=== PATIENT | female | born 1970 | race Caucasian/White ===

== ENCOUNTER 2018-03-08 05:15 | Day surgery (SDC) | payer MEDICARE, OTHER ==
[~2018-03-08] VITALS: Ht 175.3 cm; Wt 64.9 kg
[2018-03-08] VITALS (10 sets, daily range): BP systolic 105–120; BP diastolic 40–79
[~2018-03-08 05:15] MED LIST: FOLIC ACID1 MG ORAL; KEPPRA1000 MG ORAL; KLONOPIN0.5 MG ORAL; LEVOTHYROXINE75 MCG ORAL; LEXAPRO10 MG ORAL; TESTOSTERO100 MG/1 M SUBQ; VISTARIL50 MG ORAL; iron PO
[2018-03-08] MEDS ORDERED: Muri-Lube ONE (06:45)
[2018-03-08] MEDS ORDERED: Bupivacaine 0.25% Inj 30ml INJ ONE (06:46)
[2018-03-08] MEDS ORDERED: Lidocaine 1% 10mg/ml/Epi 0.005mg/ml 30ml vial INJ ONE (06:46)
[2018-03-08] MEDS ORDERED: Dyna-Hex 2% Top Sol 2oz TOPIC ONE (06:46)
[2018-03-08] MEDS ORDERED: ceFAZolin sod 2 GM in NS 55 ML IVPB ONE (07:00)
--- NOTE | 2018-03-08 07:03 | Anethesia Preoperative Eval ---
Anesthesia Pre-op PMH/ROS General Date of Evaluation: Mar 08, 2018 Anesthesiologist: Enrike ASA Score: ASA 2 Mallampati Score Class I : Soft palate, uvula, fauces, pillars visible Class II: Soft palate, uvula, fauces visible Class III: Soft palate, base of uvula visible Class IV: Only hard plate visible Mallampati Classification: Class II Surgeon: Arlet Diagnosis: Gender dysphoria Surgical Procedure: Bilateral mastectomy with free nipple graft Anesthesia History: none Family History: no anesthesia problems Allergies: Coded Allergies: PHENYTOIN (Verified Allergy, Unknown, 03/07/18) SUMATRIPTAN (Verified Allergy, Unknown, "symptoms like having heart attack ", 03/07/18) OXCARBAZEPINE (Verified Adverse Reaction, Unknown, decreased in WBC, ) Medications: see eMAR Patient NPO?: Yes NPO Date: Mar 08, 2018 NPO Time: 22:00 Past Medical History Cardiovascular: Denies: HTN, CAD, VT, valve dz, arrhythmia, other Pulmonary: Denies: asthma, COPD, GARY, other Gastrointestinal/Genitourinary: Denies: GERD, CRI, ESRD, other Neurologic/Psychiatric: Reports: depression/anxiety, other - seizure d/o; Denies: dementia, CVA, TIA Endocrine: Denies: DM, hypothyroidism, steroids, other HEENT: Denies: cataract (L), cataract (R), glaucoma, [place] (L), [place] (R), other Hematology/Immune: Denies: anemia, DVT, bleeding disorder, other Musculoskeletal/Integumentary: Denies: OA, RA, DJD, DDD, edema, other Other: other - Autistic-mild PSxH Narrative: Denies Anesthesia Pre-op Phys. Exam Physician Exam Last Vital Signs Date Time Temp Pulse Resp B/P (MAP) Pulse Ox O2 Delivery O2 Flow Rate FiO2 03/08/18 06:05 Room Air 03/08/18 06:01 98.6 59 18 116/76 99 Constitutional: NAD, other - AAOX4, +stutter/slur, Left temporal abrasion Cardiovascular: RRR Respiratory: CTA Airway Exam Mallampati Score: Class II MO: full ROM: full Teeth: intact Anesthesia Pre-op A/P Labs see chart Urine Test Test 03/08/18 05:30 Urine HCG, Qualitative Negative (NEGATIVE) Risk Assessment & Plan Assessment: ASA II Plan: GA Status Change Before Surgery: No Pre-Antibiotics Drug: Ancef 2g Given Within 1 Hr of Incision: Yes Blank Lino MD Mar 08, 2018 07:03
[2018-03-08] MEDS ORDERED: LR 1000ml 1,000 ML IVLG SCH ×2 (07:09)
[2018-03-08] MEDS ORDERED: LORazepam Inj 2mg/ml 1ml IV PRN (07:15)
[2018-03-08] MEDS ORDERED: fentaNYL 100 mcg/2 mL IV PRN ×2 (07:15)
[2018-03-08] MEDS ORDERED: Ketorolac 30mg Inj IV PRN ×2 (07:15)
[2018-03-08] MEDS ORDERED: Hydromorphone 0.5mg/0.5ml inj IVP PRN ×2 (07:15)
[2018-03-08] MEDS ORDERED: DiphenhydrAMINE 50mg/ml Inj IVP PRN ×2 (07:15)
[2018-03-08] MEDS ORDERED: Midazolam 2mg/2ml Inj IVP PRN (07:15)
[2018-03-08] MEDS ORDERED: Metoclopramide 10mg/2ml Inj IVP PRN (07:15)
--- NOTE | 2018-03-08 07:19 | Pre-Procedure Note/Attestation ---
Pre-Procedure Note/Attestation Complete Prior to Procedure Planned Procedure: bilateral Indications for Procedure Pre-Operative Diagnosis: gender identity disorder Attestation I attest that I discussed the nature of the procedure; its benefits; risks and complications; and alternatives (and the risks and benefits of such alternatives ), prior to the procedure, with the patient (or the patient's legal technical services representative). I attest that, if there was a reasonable possibility of needing a blood transfusion, the patient (or the patient's legal technical services representative) was given the [facility] standardized written summary, pursuant to the [place] Blood Safety Act ([place] Health and Safety Code # 1645, as amended). I attest that I re-evaluated the patient just prior to the surgery and that there has been no change in the patient's H&P, except as documented below: Lauro Nice MD Mar 08, 2018 07:19
[2018-03-08] MEDS ORDERED: Lidocaine 1% MPF 10mg/ml 5ml ONE (07:20)
[2018-03-08] MEDS ORDERED: Propofol 200mg/20ml IV ONE ×2 (07:20→08:04)
[2018-03-08] MEDS ORDERED: LR 1000ml ONE (07:30)
[2018-03-08] MEDS ORDERED: Sterile Water Irrig 1000ml IRRIG ONE (07:30)
[2018-03-08] MEDS ORDERED: NS Irrig 1000ml ONE (07:30)
[2018-03-08] MEDS ORDERED: Metoclopramide 10mg/2ml Inj ONE (08:16)
[2018-03-08] MEDS ORDERED: Dexamethasone 4mg/ml vial ONE (08:16)
[2018-03-08] MEDS ORDERED: Ketorolac 30mg Inj ONE ×2 (08:16→10:41)
[2018-03-08] MEDS ORDERED: Bacitracin Oint 15gm Tube TOPIC ONE (08:45)
--- NOTE | 2018-03-08 11:11 | Discharge Instructions ---
Discharge Instructions Discharge Instructions Follow up with: Dr. Nice 03/13/18 Diet: regular Resume Normal Activity?: Yes Activity: ambulate For Surgical Patients Dressing Care: keep dry and clean May shower: No - sponge bathe only For Congestive Heart Failure Reminder Report to your physician any weight gain of 5 pounds or more in one week. Lauro Nice MD Mar 08, 2018 11:11
--- NOTE | 2018-03-08 11:11 | Operative Note - PDOC ---
Operative Note Operative Note Date of Operation/Procedure: Mar 08, 2018 Pre-op Diagnosis: gender identity disorder Procedure: bilateral mastectomy, bilateral nipple areola reconstruction Post-op Diagnosis: same as pre-op Surgeon: Arlet Anesthesiologist: Enrike Anesthesia: general Specimen: yes - 1) right breast, 2) left breast Complications: none Condition: stable Estimated Blood Loss: volume - 50 cc Drains: CHITO - x2 Implant(s) used?: No Lauro Nice MD Mar 08, 2018 11:11
[2018-03-08] MEDS ORDERED: Tylenol #3 tab (300mg/30mg) ORAL PRN (11:15)
[2018-03-08] MEDS ORDERED: HYDROmorphone 1mg/ml Carpuject SUBQ PRN (11:15)
[2018-03-08] MEDS ORDERED: D5 1/2NS 1,000 ML IV SCH (11:15)
[2018-03-08] MEDS ORDERED: Norco 5mg/325mg tab ORAL PRN (11:15)
--- NOTE | 2018-03-08 11:17 | Immediate Post-Op Evaluation ---
Immediate Post-Op Evalulation Immediate Post-Op Evalulation Procedure: Bilateral mastectomy with nipple graft Date of Evaluation: Mar 08, 2018 Time of Evaluation: 11:16 IV Fluids: 1.4L Blood Products: 0 Estimated Blood Loss: 20 Urinary Output: 0 Blood Pressure Systolic: 106 Blood Pressure Diastolic: 61 Pulse Rate: 64 Respiratory Rate: 18 O2 Sat by Pulse Oximetry: 100 Temperature (Fahrenheit): 97 Pain Score (1-10): 0 Nausea: No Vomiting: No Complications 0 Patient Status: awake, reacts, patent, none Hydration Status: adequate Drug: Ancef 1g Given Within 1 Hr of Incision: Yes Time Given: 07:40 Blank Lino MD Mar 08, 2018 11:17
--- NOTE | 2018-03-08 11:21 | 48 Hour Post Anesthesia Eval ---
Post Anesthesia Evaluation Procedure: Bilateral mastectomy with nipple graft Date of Evaluation: Mar 08, 2018 Airway: patent Nausea: No Vomiting: No Pain Intensity: 0 Hydration Status: adequate Cardiopulmonary Status: at baseline Mental Status/LOC: patient returned to baseline Post-Anesthesia Complications: 0 Follow-up care needed: ready to discharge Blank Lino MD Mar 08, 2018 11:21
--- NOTE | 2018-03-08 12:15 | Operative Note - Dictated ---
DATE OF OPERATION: 03/08/2018 PREOPERATIVE DIAGNOSIS: Gender identity disorder. POSTOPERATIVE DIAGNOSIS: Gender identity disorder. PROCEDURE: 1. Bilateral mastectomy. 2. Bilateral nipple areolar reconstruction with full-thickness nipple areola grafts (each graft 2.5 x 2.5 cm). SURGEON: Lauro Nice M.D. ANESTHESIA: General. ESTIMATED BLOOD LOSS: 50 mL. SPECIMENS: 1. Right breast. 2. Left breast. DRAINS: A 15-[place] Inderjit x2. COMPLICATIONS: None. CONDITION: To recovery room stable. INDICATION FOR PROCEDURE: This is a very pleasant 47-year-old trans male, who desires top surgery mastectomy as part of his transition. He has the appropriate letter of recommendation from his therapist and meets all WPATH criteria for top surgery. I have discussed the risks, benefits, and alternatives to the procedure with him including, but not limited to, bleeding, infection, scarring, nerve injury, asymmetry, contour deformity, hematoma, seroma, loss of nipple sensation, loss of nipple graft, and need for additional surgery including revisions. I discussed the orientation of the incisions and the unpredictable nature of scarring. No guarantees were made regarding the outcome. All of his questions have been answered to the best of my ability. He verbalized understanding with everything that we discussed and wishes to proceed. DESCRIPTION OF PROCEDURE: The patient was identified in the preoperative holding area and marked in the standing position. He was then brought to the operating room where he was placed in the supine position on the operating room table with his arms extended on arm boards. All bony prominences were adequately padded. Sequential compression devices were placed and intravenous antibiotics were administered. After induction of anesthesia, the patient's chest was prepped and draped in sterile fashion. Starting on the left breast first, the nipple areola complex was placed on manual stretch and a [place] measuring 2.5 cm in diameter was drawn out centered around the nipple. Next, 3 mL of 1% lidocaine with epinephrine was used to infiltrate the subdermal plane within these markings. I then used a 15-blade scalpel to incise the areolar marking and proceeded to harvest a full-thickness nipple areola graft. The graft was subsequently defatted, wrapped in wet gauze and placed on the back table. Next, I made the inframammary fold incision using a 10-blade scalpel and dissected down to the level of the pectoralis major fascia. I then proceeded to make the superior breast incision and dissected down to the level of Rtent's fascia. Allis clamps were used to retract the skin and a plane of dissection was created in a superior direction towards the level of the clavicle between the breast parenchyma and subcutaneous tissues. Afterwards, the breast parenchyma was elevated off of the pectoralis major fascia from medial to lateral direction. The specimen was passed off the table. Hemostasis was achieved and the wound was irrigated with saline. A 15-[place] Inderjit drain was placed within the wound and brought out through a separate stab incision and secured using 2-0 silk suture. I then proceeded to use skin liliana to temporarily reapproximate the skin. I shifted my attention to the contralateral side where the identical procedure was performed. The patient was then sat up on the operating room table and it appeared that he had very reasonable symmetry between two sides of his chest. The right inframammary fold was noted to be several centimeters lower than the left side and tacking sutures were placed internally to elevate the inframammary fold. Afterwards, he had much better symmetry between the two inframammary folds. I then used a marking pen to draw the proposed location of the new nipple areola complex on each side and these markings were confirmed with direct measurement. He was then placed back in the supine position. On each side of the chest, the skin liliana were removed, 0-Vicryl suture was used to reapproximate Trent's fascia layer followed by 3-0 PDS suture for the subdermal layer and a 3-0 Monocryl suture for the skin. Next, I proceeded to incise each of the areolar markings using a 15-blade scalpel and the intervening skin was de-epithelialized. Each of the full-thickness nipple areola grafts were brought onto the respective side of the chest. Nipple areola reconstruction was performed by insetting each of the graft into the de-epithelialized area using a running 5-0 fast absorbing suture. Several 2-0 silk suture ties were then placed around the periphery of each nipple areola graft. A skin graft bolster was fashioned and secured into place directly on top of the nipple areola graft using the 2-0 silk suture ties. Next, 10 mL of 0.25% plain Marcaine were injected into the each chest for a total of 20 mL. Sterile dressings were then applied. The patient tolerated the procedure well and was sent to the recovery room in stable condition. All instrument, sharp, and sponge counts were correct at the conclusion of the procedure. Lauro Nice M.D. DR: CHI JOB#: [id number] CC: [email or web address]
== END 2018-03-08 13:00 | disposition home or self-care (01) ==
LOC: MERGE 05:15 → SUR 05:15
DX: F64.9 Gender identity disorder, unspecified (principal); F32.9 Major depressive disorder, single episode, unspecified; F41.1 Generalized anxiety disorder; F84.0 Autistic disorder; G40.909 Epilepsy, unspecified, not intractable, without status epilepticus; Z87.891 Personal history of nicotine dependence; Z88.8 Allergy status to other drugs, medicaments and biological substances
CPT/HCPCS: 81025; 94003; 94150; J2250; J2405; J2765